=== PATIENT | female | born 1965 | race Caucasian/White ===

== ENCOUNTER 2023-03-17 09:05 | Inpatient (IN) ==
[2023-03-17] MEDS ORDERED: IOPAMIDOL 100 ML BOTTLE IV ONE (09:06)
[2023-03-17 09:30] LABS: POC INR 1.1 (0.8-1.2); POC Pro Time 12.7 (11.9-14.5)
[2023-03-17 09:37] LABS: POC Calcium, Ionized 1.24 (1.16-1.32); POC Creatinine 1.3 (0.6-1.2); POC Potassium 4.3 (3.3-5.1)
[2023-03-17] MEDS ORDERED: ASPIRIN 300 MG RECTAL SUPPOSITORY PR ONE ×2 (10:11→13:15)
[2023-03-17 10:41] LABS: ALT/SGPT 38 U/L (<40); AST/SGOT 14 U/L (<32); Albumin 4.3 gm/dL (3.2-5.2); Alkaline Phosphatase 198 U/L (39-117); Bilirubin,Direct < 0.2 mg/dL (0-0.3); Bilirubin,Total 0.5 mg/dL (0.1-1.0); Globulin 3.4 gm/dL (2.2-3.7)
[2023-03-17 10:47] LABS: Basophils # (Auto) 0.02 K/mcL (0.00-0.30); Basophils % (Auto) 0.3 % (0.0-2.0); Eosinophils # (Auto) 0.13 K/mcL (0.00-0.70); Hematocrit 42.6 % (34.1-44.9); Hemoglobin 13.9 g/dL (11.2-15.7); Lymphocytes # (Auto) 0.56 K/mcL (1.50-4.80); Lymphocytes % (Auto) 8.6 % (15.5-49.0); Mean Cell Volume 88.6 fL (80.0-100.0); Mean Corpuscular HGB Conc 32.6 g/dL (31.0-36.0); Mean Platelet Volume 9.8 fL (8.8-12.5); Monocytes # (Auto) 0.47 K/mcL (0.10-0.90); Monocytes % (Auto) 7.2 % (1.0-12.0); Platelet Count 292 K/mcL (140-440); RBC 4.81 M/mcL (3.59-5.38); Red Cell Distribution Width 14.3 % (11.5-14.5); WBC 6.5 K/mcL (4.5-11.0)
[2023-03-17] MEDS ORDERED: ONDANSETRON 4 MG/2 ML VIAL IV ONE (12:50)
[2023-03-17] MEDS ORDERED: HYDROmorphone 0.5 MG/0.5 ML SYRINGE IV ONE ×2 (12:50→14:14)
[2023-03-17] MEDS ORDERED: SENNOSIDES 1 TABLET PO PRN (13:43)
[2023-03-17] MEDS ORDERED: LACTULOSE 20 GM/30 ML ORAL.SOL PO PRN (13:43)
[2023-03-17] MEDS: CLOPIDOGREL 75 MG TABLET PO SCH (15:54)
[2023-03-17] MEDS: 0.9 % SODIUM CHLORIDE 10 ML SYRINGE IV SCH ×2 (15:55→20:30)
[2023-03-17 19:16] LABS: Appearance,Urine CLEAR (Clear); Bilirubin,Urine Negative (Negative); Color,Urine STRAW; Culture Indicated,Urine No; Glucose,Urine (UA) Negative (Negative); Ketones,Urine Negative (Negative); Leukocyte Esterase,Urine Negative /uL (Negative); Nitrate,Urine Negative (Negative); Protein,Urine Negative (Negative); Specific Gravity,Urine 1.034 (1.000-1.035); Urine Blood Negative (Negative); Urobilinogen,Urine Negative
[2023-03-17] MEDS: DOCUSATE SODIUM 100 MG CAPSULE PO SCH (20:27)
[2023-03-17] MEDS: HEPARIN 5,000 UNIT/ML VIAL SQ SCH (20:30)
[2023-03-18] MEDS: 0.9 % SODIUM CHLORIDE 10 ML SYRINGE IV SCH ×2 (06:02→15:17)
[2023-03-18] MEDS ORDERED: ALBUTEROL SULFATE 60 PUFF INHALER INH PRN (07:22)
[2023-03-18] MEDS ORDERED: ATORVASTATIN 40 MG TABLET PO SCH (09:00)
[2023-03-18] MEDS ORDERED: NON FORMULARY MEDICATION 1 DOSE MISCELL (Atorvastatin 80 mg tablet) PO SCH (09:00)
[2023-03-18] MEDS: DOCUSATE SODIUM 100 MG CAPSULE PO SCH ×2 (10:03→20:35)
[2023-03-18] MEDS: HEPARIN 5,000 UNIT/ML VIAL SQ SCH (10:08)
[2023-03-18] MEDS: ASPIRIN 81 MG TAB.CHEW CHEWED SCH (10:09)
[2023-03-18] MEDS: ATORVASTATIN 40 MG TABLET PO SCH (12:59)
[2023-03-18] MEDS: ACETAMINOPHEN 325 MG TABLET PO PRN ×2 (13:00→20:30)
[2023-03-18] MEDS: ONDANSETRON 4 MG ODT TABLET SL PRN ×2 (13:00→20:32)
[2023-03-18] MEDS: GABAPENTIN 300 MG CAPSULE PO SCH ×3 (13:00→20:33)
[2023-03-18] MEDS: CLOPIDOGREL 75 MG TABLET PO SCH (13:53)
[2023-03-18 16:05] LABS: Basophils # (Auto) 0.01 K/mcL (0.00-0.30); Basophils % (Auto) 0.2 % (0.0-2.0); Eosinophils # (Auto) 0.18 K/mcL (0.00-0.70); Eosinophils % (Auto) 3.3 % (0.0-7.0); Hematocrit 40.6 % (34.1-44.9); Lymphocytes % (Auto) 9.1 % (15.5-49.0); Mean Cell Volume 90.8 fL (80.0-100.0); Mean Platelet Volume 9.5 fL (8.8-12.5); Monocytes # (Auto) 0.41 K/mcL (0.10-0.90); Monocytes % (Auto) 7.5 % (1.0-12.0); Neutrophils % (Auto) 78.6 % (38.0-78.0); Platelet Count 281 K/mcL (140-440); RBC 4.47 M/mcL (3.59-5.38); Red Cell Distribution Width 14.1 % (11.5-14.5); WBC 5.5 K/mcL (4.5-11.0)
[2023-03-18 16:11] LABS: Blood Urea Nitrogen 18 mg/dL (6-20); Carbon Dioxide 23 mmol/L (22-30); Chloride 102 mmol/L (96-108); Glomerular Filtration Rate 56; Glucose 71 mg/dL (70-105); Thyroid Stimulating Hormone 0.61 uIU/mL (0.27-5.01)
[2023-03-18 16:42] LABS: Estimated Average Glucose(eAG) 91 mg/dL; Hemoglobin A1C 4.8 % Hgb (4.0-6.0)
[2023-03-18] MEDS ORDERED: AMITRIPTYLINE 25 MG TABLET PO SCH (21:00)
[2023-03-19] MEDS: 0.9 % SODIUM CHLORIDE 10 ML SYRINGE IV SCH ×2 (01:05→09:10)
[2023-03-19] MEDS: HEPARIN 5,000 UNIT/ML VIAL SQ SCH ×2 (01:08→09:08)
[2023-03-19] MEDS ORDERED: amLODIPine 10 MG TABLET PO SCH (09:00)
[2023-03-19] MEDS: DOCUSATE SODIUM 100 MG CAPSULE PO SCH (09:09)
[2023-03-19] MEDS: ATORVASTATIN 40 MG TABLET PO SCH (09:09)
[2023-03-19] MEDS: ASPIRIN 81 MG TAB.CHEW CHEWED SCH (09:09)
[2023-03-19] MEDS: GABAPENTIN 300 MG CAPSULE PO SCH (09:10)
== END 2023-03-19 14:10 | disposition home health service (06) | DRG 57 ==
LOC: ED 09:05 → ICU 14:45 → MEDSUR 03-18 15:01
PROVIDERS: ADMIT Student in an Organized Health Care Education/Training Program; ATTEND Student in an Organized Health Care Education/Training Program

== ENCOUNTER 2023-12-19 07:23 | Inpatient (IN) ==
[2023-12-19 09:05] LABS: Hematocrit 32.9 % (34.1-44.9); Hemoglobin 10.5 g/dL (11.2-15.7); Mean Corpuscular HGB Conc 31.9 g/dL (31.0-36.0); Mean Platelet Volume 9.6 fL (8.8-12.5); Platelet Count 255 K/mcL (140-440); RBC 3.74 M/mcL (3.59-5.38); Red Cell Distribution Width 14.4 % (11.5-14.5); WBC 3.6 K/mcL (4.5-11.0)
[2023-12-19] MEDS: ONDANSETRON 4 MG/2 ML VIAL IV ONE (09:26)
[2023-12-19] MEDS: HYDROmorphone 0.5 MG/0.5 ML SYRINGE IV ONE (09:26)
[2023-12-19 09:28] LABS: proBNP 61.5 pg/mL (<125.0)
[2023-12-19 09:29] LABS: Appearance,Urine Clear (Clear); Bilirubin,Urine Negative (Negative); Color,Urine Yellow; Culture Indicated,Urine No; Glucose,Urine (UA) Negative (Negative); Ketones,Urine Negative (Negative); Leukocyte Esterase,Urine Trace /uL (Negative); Nitrate,Urine Negative (Negative); Protein,Urine Negative (Negative); Urine Blood Negative ery/mcL (Negative); Urine RBC 0 /hpf (0-3); Urine Squamous Epithelial Cell 7 /hpf (0-4); Urine WBC 0 /hpf (0-4); Urobilinogen,Urine Normal
[2023-12-19 09:31] LABS: ALT/SGPT 8 U/L (<40); AST/SGOT 13 U/L (<32); Albumin 3.8 gm/dL (3.2-5.2); Albumin/Globulin Ratio 1.7 (1.0-2.3); Alkaline Phosphatase 123 U/L (39-117); Bilirubin,Total 0.3 mg/dL (0.1-1.0); Blood Urea Nitrogen 9 mg/dL (6-20); Calcium 9.4 mg/dL (8.6-10.4); Carbon Dioxide 23 mmol/L (22-30); Chloride 107 mmol/L (96-108); Globulin 2.3 gm/dL (2.2-3.7); Glomerular Filtration Rate 62; Glucose 102 mg/dL (70-105)
[2023-12-19] MEDS: HYDROmorphone 0.5 MG/0.5 ML SYRINGE IM ONE (11:51)
[2023-12-19] MEDS: guaiFENesin 600 MG TAB.SR.12H PO ONE (12:28)
[2023-12-19] MEDS: methylPREDNISolone SOD SUCC 125 MG/2 ML VIAL IV ONE (12:28)
[2023-12-19 13:13] LABS: Basophils % (Manual) 1 % (0-2); Eosinophils % (Manual) 4 % (0-7); Lymphocytes % 6 % (15-49); Monocytes % (Manual) 6 % (1-12); Platelet Estimate NORMAL (Normal); RBC Morphology NORMAL (Normal); Reactive Lymphocytes 3 % (0-2); Segmented Neutrophils % 80 % (38-78)
[2023-12-19] MEDS ORDERED: ACETAMINOPHEN 325 MG TABLET PO PRN (17:21)
[2023-12-19] MEDS ORDERED: MAGNESIUM HYDROXIDE 30 ML ORAL.SUSP PO PRN (17:21)
[2023-12-19] MEDS ORDERED: NALOXONE HCL 0.4 MG/ML VIAL IV PRN (17:21)
[2023-12-19] MEDS: diphenhydrAMINE 50 MG/ML VIAL IV PRN (17:47)
[2023-12-19] MEDS: ONDANSETRON 4 MG/2 ML VIAL IV PRN (17:48)
[2023-12-19] MEDS: HYDROmorphone 1 MG/ML SYRINGE IV ONE (17:48)
[2023-12-19] MEDS: 0.9 % SODIUM CHLORIDE 10 ML SYRINGE IV SCH (17:49)
[2023-12-19] MEDS: IPRATROPIUM/ALBUTEROL 3 ML AMPUL.NEB NEB SCH (18:45)
[2023-12-19] MEDS: methylPREDNISolone SOD SUCC 125 MG/2 ML VIAL IV SCH (21:40)
[2023-12-19] MEDS: DOCUSATE SODIUM 100 MG CAPSULE PO SCH (21:40)
[2023-12-19] MEDS: SENNOSIDES 1 TABLET PO SCH (21:40)
[2023-12-19] MEDS ORDERED: ALBUTEROL SULFATE 60 PUFF INHALER INH PRN (21:41)
[2023-12-19] MEDS: HYDROmorphone 2 MG TABLET PO PRN (21:41)
[2023-12-19] MEDS: amLODIPine 5 MG TABLET ONE (22:24)
[2023-12-19] MEDS: GABAPENTIN 300 MG CAPSULE ONE (22:25)
[2023-12-20] MEDS: guaiFENesin/CODEINE 10 ML UDC PO PRN (00:42)
[2023-12-20 06:20] LABS: Basophils # (Auto) 0 K/mcL (0.00-0.30); Basophils % (Auto) 0 % (0.0-2.0); Eosinophils # (Auto) 0 K/mcL (0.00-0.70); Eosinophils % (Auto) 0 % (0.0-7.0); Hematocrit 34.4 % (34.1-44.9); Lymphocytes # (Auto) 0.38 K/mcL (1.50-4.80); Lymphocytes % (Auto) 9.3 % (15.5-49.0); Mean Cell Volume 87.3 fL (80.0-100.0); Mean Platelet Volume 9.6 fL (8.8-12.5); Monocytes # (Auto) 0.05 K/mcL (0.10-0.90); Monocytes % (Auto) 1.2 % (1.0-12.0); Neutrophils % (Auto) 88.5 % (38.0-78.0); Platelet Count 275 K/mcL (140-440); RBC 3.94 M/mcL (3.59-5.38); Red Cell Distribution Width 14.1 % (11.5-14.5); WBC 4.1 K/mcL (4.5-11.0)
[2023-12-20] MEDS ORDERED: HYDROCODONE HOMATROPINE PO PRN (06:45)
[2023-12-20 07:03] LABS: Phosphorous 3.1 mg/dL (2.5-4.5)
[2023-12-20 07:19] LABS: ALT/SGPT 7 U/L (<40); AST/SGOT 15 U/L (<32); Albumin 3.9 gm/dL (3.2-5.2); Albumin/Globulin Ratio 1.5 (1.0-2.3); Alkaline Phosphatase 125 U/L (39-117); Bilirubin,Total 0.4 mg/dL (0.1-1.0); Blood Urea Nitrogen 12 mg/dL (6-20); Calcium 9.8 mg/dL (8.6-10.4); Carbon Dioxide 22 mmol/L (22-30); Chloride 105 mmol/L (96-108); Globulin 2.6 gm/dL (2.2-3.7); Glomerular Filtration Rate 62; Glucose 141 mg/dL (70-105)
[2023-12-20] MEDS: GABAPENTIN 300 MG CAPSULE PO SCH (08:29)
[2023-12-20] MEDS: ENOXAPARIN 40 MG/0.4 ML SYRINGE SQ SCH (08:29)
[2023-12-20] MEDS: ACETAMINOPHEN 500 MG TABLET PO PRN (08:29)
[2023-12-20] MEDS: AMITRIPTYLINE 25 MG TABLET PO SCH (21:13)
[2023-12-20] MEDS: amLODIPine 10 MG TABLET PO SCH (21:14)
[2023-12-21 06:25] LABS: Basophils # (Auto) 0.01 K/mcL (0.00-0.30); Basophils % (Auto) 0.1 % (0.0-2.0); Eosinophils # (Auto) 0 K/mcL (0.00-0.70); Eosinophils % (Auto) 0 % (0.0-7.0); Hematocrit 34.6 % (34.1-44.9); Hemoglobin 10.7 g/dL (11.2-15.7); Lymphocytes # (Auto) 0.44 K/mcL (1.50-4.80); Lymphocytes % (Auto) 4.9 % (15.5-49.0); Mean Cell Volume 90.1 fL (80.0-100.0); Mean Corpuscular HGB Conc 30.9 g/dL (31.0-36.0); Mean Platelet Volume 10.2 fL (8.8-12.5); Monocytes # (Auto) 0.13 K/mcL (0.10-0.90); Monocytes % (Auto) 1.4 % (1.0-12.0); Neutrophils % (Auto) 93.2 % (38.0-78.0); Platelet Count 289 K/mcL (140-440); RBC 3.84 M/mcL (3.59-5.38); Red Cell Distribution Width 14.5 % (11.5-14.5); WBC 9.1 K/mcL (4.5-11.0)
[2023-12-21 06:55] LABS: ALT/SGPT < 5 U/L (<40); AST/SGOT 18 U/L (<32); Albumin/Globulin Ratio 1.5 (1.0-2.3); Alkaline Phosphatase 116 U/L (39-117); Bilirubin,Total < 0.2 mg/dL (0.1-1.0); Blood Urea Nitrogen 20 mg/dL (6-20); Calcium 9.9 mg/dL (8.6-10.4); Carbon Dioxide 21 mmol/L (22-30); Chloride 101 mmol/L (96-108); Globulin 2.6 gm/dL (2.2-3.7); Glomerular Filtration Rate 50; Glucose 153 mg/dL (70-105)
[2023-12-21] MEDS: methylPREDNISolone SOD SUCC 40 MG/ML VIAL IV SCH (08:51)
[2023-12-21] MEDS: LACTATED RINGERS 1,000 ML IV SCH (08:53)
[2023-12-21] MEDS: HYDROmorphone 1 MG/ML SYRINGE IV ONE (21:01)
[2023-12-21] MEDS: HYDROmorphone 1 MG/ML SYRINGE ONE (21:07)
[2023-12-22 06:58] LABS: Basophils # (Auto) 0.02 K/mcL (0.00-0.30); Basophils % (Auto) 0.2 % (0.0-2.0); Eosinophils # (Auto) 0.01 K/mcL (0.00-0.70); Eosinophils % (Auto) 0.1 % (0.0-7.0); Hematocrit 36.2 % (34.1-44.9); Hemoglobin 11.3 g/dL (11.2-15.7); Lymphocytes # (Auto) 1.05 K/mcL (1.50-4.80); Lymphocytes % (Auto) 11.8 % (15.5-49.0); Mean Cell Volume 89.2 fL (80.0-100.0); Mean Corpuscular HGB Conc 31.2 g/dL (31.0-36.0); Mean Platelet Volume 9.5 fL (8.8-12.5); Monocytes # (Auto) 0.65 K/mcL (0.10-0.90); Monocytes % (Auto) 7.3 % (1.0-12.0); Platelet Count 316 K/mcL (140-440); RBC 4.06 M/mcL (3.59-5.38); Red Cell Distribution Width 14.3 % (11.5-14.5); WBC 8.9 K/mcL (4.5-11.0)
[2023-12-22 07:40] LABS: ALT/SGPT < 5 U/L (<40); AST/SGOT 16 U/L (<32); Albumin/Globulin Ratio 1.5 (1.0-2.3); Alkaline Phosphatase 112 U/L (39-117); Bilirubin,Total < 0.2 mg/dL (0.1-1.0); Blood Urea Nitrogen 18 mg/dL (6-20); Calcium 9.9 mg/dL (8.6-10.4); Carbon Dioxide 22 mmol/L (22-30); Chloride 104 mmol/L (96-108); Globulin 2.6 gm/dL (2.2-3.7); Glomerular Filtration Rate 56; Glucose 90 mg/dL (70-105)
[2023-12-22] MEDS: methylPREDNISolone SOD SUCC 40 MG/ML VIAL IV ONE (17:42)
[2023-12-22] MEDS: HYDROmorphone 1 MG/ML SYRINGE IV ONE (20:46)
[2023-12-23] MEDS ORDERED: IPRATROPIUM/ALBUTEROL 3 ML AMPUL.NEB NEB PRN (08:18)
== END 2023-12-23 11:10 | disposition home or self-care (01) | DRG 197 ==
LOC: ED 07:23 → MEDSUR 17:11
PROVIDERS: ADMIT Student in an Organized Health Care Education/Training Program; ATTEND Internal Medicine

== ENCOUNTER 2024-06-03 01:25 | Inpatient (IN) ==
[2024-06-03] MEDS ORDERED: IOPAMIDOL 100 ML BOTTLE IV ONE (01:26)
[2024-06-03] MEDS: HYDROmorphone 0.5 MG/0.5 ML SYRINGE IV PRN ×2 (02:49→11:59)
[2024-06-03] MEDS: ONDANSETRON 4 MG/2 ML VIAL IV ONE ×3 (02:49→08:59)
[2024-06-03] MEDS: 0.9 % SODIUM CHLORIDE 1,000 ML IV ONE (02:49)
[2024-06-03 03:03] LABS: Basophils # (Auto) 0.02 K/mcL (0.00-0.30); Basophils % (Auto) 0.2 % (0.0-2.0); Eosinophils # (Auto) 0.12 K/mcL (0.00-0.70); Hematocrit 42.3 % (34.1-44.9); Hemoglobin 13.9 g/dL (11.2-15.7); Lymphocytes # (Auto) 0.42 K/mcL (1.50-4.80); Lymphocytes % (Auto) 3.6 % (15.5-49.0); Mean Cell Volume 88.5 fL (80.0-100.0); Mean Corpuscular HGB Conc 32.9 g/dL (31.0-36.0); Monocytes # (Auto) 0.81 K/mcL (0.10-0.90); Monocytes % (Auto) 6.9 % (1.0-12.0); Platelet Count 255 K/mcL (140-440); RBC 4.78 M/mcL (3.59-5.38); WBC 11.7 K/mcL (4.5-11.0)
[2024-06-03 03:24] LABS: ALT/SGPT 17 U/L (<40); AST/SGOT 26 U/L (<32); Albumin 4.6 gm/dL (3.2-5.2); Albumin/Globulin Ratio 1.7 (1.0-2.3); Alkaline Phosphatase 141 U/L (39-117); Bilirubin,Total 0.5 mg/dL (0.1-1.0); Blood Urea Nitrogen 24 mg/dL (6-20); Calcium 10.4 mg/dL (8.6-10.4); Carbon Dioxide 22 mmol/L (22-30); Chloride 106 mmol/L (96-108); Globulin 2.7 gm/dL (2.2-3.7); Glomerular Filtration Rate 38; Glucose 117 mg/dL (70-105); Potassium 3.5 mmol/L (3.3-5.1); Sodium 144 mmol/L (133-145)
[2024-06-03] MEDS: diphenhydrAMINE 50 MG/ML VIAL IV ONE (04:44)
[2024-06-03] MEDS: methylPREDNISolone SOD SUCC 125 MG/2 ML VIAL IV ONE (04:44)
[2024-06-03] MEDS: HYDROmorphone 1 MG/ML SYRINGE IV ONE (09:00)
[2024-06-03] MEDS ORDERED: ACETAMINOPHEN 500 MG TABLET PO PRN (09:51)
[2024-06-03] MEDS ORDERED: 0.9 % SODIUM CHLORIDE 1,000 ML IV SCH (09:51)
[2024-06-03] MEDS ORDERED: SENNOSIDES 1 TABLET PO PRN (09:51)
[2024-06-03] MEDS: HEPARIN 5,000 UNIT/ML VIAL SQ SCH (10:07)
[2024-06-03] MEDS: SODIUM CHLORIDE 154 MEQ in WATER FOR INJECTION,STERILE 961.5 ML IV SCH (10:22)
[2024-06-03] MEDS: HYDROcodone/APAP 5/325MG TABLET PO PRN (10:41)
[2024-06-03] MEDS: 0.9 % SODIUM CHLORIDE 10 ML SYRINGE IV SCH (12:00)
[2024-06-03] MEDS: ONDANSETRON 4 MG/2 ML VIAL IV PRN (16:38)
[2024-06-03] MEDS ORDERED: IPRATROPIUM/ALBUTEROL 3 ML AMPUL.NEB NEB PRN (20:26)
[2024-06-03] MEDS: AMITRIPTYLINE 25 MG TABLET PO SCH (21:09)
[2024-06-03] MEDS: GABAPENTIN 300 MG CAPSULE PO SCH (21:10)
[2024-06-03] MEDS: amLODIPine 10 MG TABLET PO SCH (21:11)
[2024-06-03] MEDS: diphenhydrAMINE 25 MG CAPSULE PO PRN (21:11)
[2024-06-03] MEDS: BUDESONIDE 0.5 MG/2 ML AMPUL.NEB NEB SCH (21:12)
[2024-06-04 07:05] LABS: Basophils # (Auto) 0 K/mcL (0.00-0.30); Basophils % (Auto) 0 % (0.0-2.0); Eosinophils # (Auto) 0 K/mcL (0.00-0.70); Eosinophils % (Auto) 0 % (0.0-7.0); Hematocrit 37.9 % (34.1-44.9); Hemoglobin 12.5 g/dL (11.2-15.7); Lymphocytes # (Auto) 0.39 K/mcL (1.50-4.80); Lymphocytes % (Auto) 2.6 % (15.5-49.0); Mean Cell Volume 87.9 fL (80.0-100.0); Monocytes # (Auto) 1.24 K/mcL (0.10-0.90); Monocytes % (Auto) 8.1 % (1.0-12.0); Neutrophils % (Auto) 88.7 % (38.0-78.0); Platelet Count 196 K/mcL (140-440); RBC 4.31 M/mcL (3.59-5.38); Red Cell Distribution Width 13.7 % (11.5-14.5); WBC 15.3 K/mcL (4.5-11.0)
[2024-06-04 08:22] LABS: Blood Urea Nitrogen 11 mg/dL (6-20); Calcium 8.4 mg/dL (8.6-10.4); Carbon Dioxide 22 mmol/L (22-30); Chloride 103 mmol/L (96-108); Glomerular Filtration Rate 96; Glucose 119 mg/dL (70-105); Potassium 3.1 mmol/L (3.3-5.1); Sodium 137 mmol/L (133-145)
[2024-06-04] MEDS: metroNIDAZOLE 500 MG/100 ML BAG IV SCH (10:54)
[2024-06-04] MEDS: POTASSIUM CHLORIDE 10 MEQ/100 ML BAG IV SCH (10:57)
[2024-06-04] MEDS: cefTRIAXone 1 GM VIAL IV SCH (10:58)
[2024-06-04] MEDS: methylPREDNISolone SOD SUCC 40 MG/ML VIAL IV SCH (10:58)
[2024-06-04] MEDS: MAGNESIUM SULFATE 1 GM/100 ML BAG IV ONE (10:59)
[2024-06-04] MEDS: LIDOCAINE 4% TOP PATCH TOPICAL SCH (11:11)
[2024-06-04] MEDS: POTASSIUM CHLORIDE 40 MEQ in DEXTROSE 5% IN WATER 500 ML IV ONE (11:12)
[2024-06-04] MEDS: 0.9 % SODIUM CHLORIDE 1,000 ML IV SCH (11:13)
[2024-06-04] MEDS: diphenhydrAMINE 50 MG/ML VIAL IV PRN (13:24)
[2024-06-04] MEDS: SODIUM CHLORIDE 154 MEQ in WATER FOR INJECTION,STERILE 961.5 ML IV SCH (13:24)
[2024-06-04] MEDS ORDERED: SODIUM CHLORIDE IRRIG SOLUTION 250 ML BOTTLE IRR ONE (16:33)
[2024-06-04] MEDS ORDERED: IOPAMIDOL 100 ML BOTTLE IV ONE ×2 (16:33→16:38)
[2024-06-04] MEDS: cefTRIAXone 1 GM VIAL IV ONE (18:05)
[2024-06-04] MEDS: 0.9 % SODIUM CHLORIDE 10 ML SYRINGE IV SCH (20:06)
[2024-06-04 20:33] LABS: ALT/SGPT 12 U/L (<40); AST/SGOT 14 U/L (<32); Albumin 3.7 gm/dL (3.2-5.2); Albumin/Globulin Ratio 1.6 (1.0-2.3); Alkaline Phosphatase 113 U/L (39-117); Bilirubin,Direct < 0.2 mg/dL (0-0.3); Bilirubin,Total 0.3 mg/dL (0.1-1.0); Blood Urea Nitrogen 10 mg/dL (6-20); Calcium 8.3 mg/dL (8.6-10.4); Carbon Dioxide 23 mmol/L (22-30); Chloride 100 mmol/L (96-108); Globulin 2.3 gm/dL (2.2-3.7); Glomerular Filtration Rate 81; Glucose 158 mg/dL (70-105); Lactate Dehydrogenase 138 U/L (135-225); Phosphorous 1.5 mg/dL (2.5-4.5); Potassium 3.4 mmol/L (3.3-5.1); Sodium 135 mmol/L (133-145); Triglycerides 107 mg/dL (<150); Uric Acid 4.1 mg/dL (2.5-8.0)
[2024-06-04] MEDS: POTASSIUM PHOSPHATE 66 MEQ/15 ML VIAL IV ONE (22:34)
[2024-06-04] MEDS: POTASSIUM PHOSPHATE 40 MEQ in DEXTROSE 5% IN WATER 500 ML IV ONE (22:35)
[2024-06-05 06:11] LABS: Basophils # (Auto) 0.01 K/mcL (0.00-0.30); Basophils % (Auto) 0.1 % (0.0-2.0); Eosinophils # (Auto) 0 K/mcL (0.00-0.70); Eosinophils % (Auto) 0 % (0.0-7.0); Hematocrit 36.2 % (34.1-44.9); Hemoglobin 12.1 g/dL (11.2-15.7); Lymphocytes # (Auto) 0.63 K/mcL (1.50-4.80); Lymphocytes % (Auto) 4.2 % (15.5-49.0); Mean Cell Volume 87.4 fL (80.0-100.0); Mean Corpuscular HGB Conc 33.4 g/dL (31.0-36.0); Mean Platelet Volume 10.4 fL (8.8-12.5); Monocytes # (Auto) 1.23 K/mcL (0.10-0.90); Monocytes % (Auto) 8.2 % (1.0-12.0); Neutrophils % (Auto) 86.7 % (38.0-78.0); Platelet Count 199 K/mcL (140-440); RBC 4.14 M/mcL (3.59-5.38); Red Cell Distribution Width 13.6 % (11.5-14.5)
[2024-06-05] MEDS: cefTRIAXone 2 GM in DEXTROSE 5% IN WATER 50 ML IV SCH (08:09)
[2024-06-05 08:23] LABS: Blood Urea Nitrogen 8 mg/dL (6-20); Carbon Dioxide 25 mmol/L (22-30); Chloride 101 mmol/L (96-108); Glomerular Filtration Rate 96; Glucose 101 mg/dL (70-105); Potassium 3.7 mmol/L (3.3-5.1); Sodium 136 mmol/L (133-145)
[2024-06-05] MEDS ORDERED: cefTRIAXone 1 GM VIAL IV SCH (09:00)
[2024-06-05] MEDS ORDERED: methylPREDNISolone SOD SUCC 125 MG/2 ML VIAL IV SCH (09:00)
[2024-06-05] MEDS: CALCIUM GLUCONATE 9.3 MEQ in DEXTROSE 5% IN WATER 50 ML IV ONE (09:55)
[2024-06-05] MEDS: POTASSIUM PHOSPHATE 20 MEQ in DEXTROSE 5% IN WATER 250 ML IV ONE (09:56)
[2024-06-05] MEDS: 0.9 % SODIUM CHLORIDE 10 ML SYRINGE IV PRN (13:14)
[2024-06-06 06:32] LABS: Basophils # (Auto) 0.01 K/mcL (0.00-0.30); Basophils % (Auto) 0.1 % (0.0-2.0); Eosinophils # (Auto) 0.01 K/mcL (0.00-0.70); Eosinophils % (Auto) 0.1 % (0.0-7.0); Hematocrit 35.1 % (34.1-44.9); Hemoglobin 11.5 g/dL (11.2-15.7); Lymphocytes # (Auto) 0.59 K/mcL (1.50-4.80); Lymphocytes % (Auto) 5.7 % (15.5-49.0); Mean Corpuscular HGB Conc 32.8 g/dL (31.0-36.0); Mean Platelet Volume 10.2 fL (8.8-12.5); Monocytes # (Auto) 0.62 K/mcL (0.10-0.90); Neutrophils % (Auto) 87.6 % (38.0-78.0); Platelet Count 205 K/mcL (140-440); RBC 3.99 M/mcL (3.59-5.38); Red Cell Distribution Width 13.7 % (11.5-14.5); WBC 10.3 K/mcL (4.5-11.0)
[2024-06-06 07:59] LABS: Blood Urea Nitrogen 12 mg/dL (6-20); Carbon Dioxide 28 mmol/L (22-30); Chloride 103 mmol/L (96-108); Glomerular Filtration Rate 96; Glucose 91 mg/dL (70-105); Potassium 3.8 mmol/L (3.3-5.1); Sodium 139 mmol/L (133-145)
[2024-06-06] MEDS: CALCIUM W/VIT D3 500 MG TABLET PO SCH (08:32)
[2024-06-06 09:12] LABS: EBV Virus Capsid Ag IgG Ab >600.0 U/mL (0.0-17.9); EBV Virus Capsid Ag IgM Ab 45.3 U/mL (0.0-35.9)
[2024-06-06] MEDS ORDERED: ACETAMINOPHEN 500 MG TABLET PO PRN (09:23)
[2024-06-06] MEDS: CALCIUM GLUCONATE 9.3 MEQ in DEXTROSE 5% IN WATER 50 ML IV ONE (09:34)
[2024-06-06] MEDS: ACETAMINOPHEN 1,000 MG/100 ML BAG IV ONE (09:39)
[2024-06-06] MEDS: HYDROmorphone 0.5 MG/0.5 ML SYRINGE IV PRN (10:34)
[2024-06-06] MEDS: ACYCLOVIR SODIUM 500 MG VIAL IV SCH (11:52)
[2024-06-06] MEDS: ACYCLOVIR SODIUM IV SCH (12:06)
[2024-06-06] MEDS: SODIUM CHLORIDE 0.9% IV SCH (12:06)
[2024-06-06] MEDS: HYDROcodone/APAP 5/325MG TABLET PO PRN (12:07)
[2024-06-06] MEDS ORDERED: ACYCLOVIR SODIUM 500 MG VIAL IV SCH (13:00)
[2024-06-06] MEDS: POTASSIUM PHOSPHATE 40 MEQ in DEXTROSE 5% IN WATER 500 ML IV ONE (13:48)
[2024-06-06 14:09] LABS: Adenovirus Not Detected (Not Detected); Bordetella Pertussis Not Detected (Not Detected); Chlamydophila Pneumoniae Not Detected (Not Detected); Coronavirus 229E Not Detected (Not Detected); Coronavirus HKU1 Not Detected (Not Detected); Coronavirus NL63 Not Detected (Not Detected); Coronavirus OC43 Not Detected (Not Detected); Human Metapneumovirus Not Detected (Not Detected); Influenza A/H1 Not Detected (Not Detected); Influenza A/H1-2009 Not Detected (Not Detected); Influenza A/H3 Not Detected (Not Detected); Influenza B Not Detected (Not Detected); Mycoplasma Pneumoniae Not Detected (Not Detected); Parainfluenza 1 Not Detected (Not Detected); Parainfluenza 2 Not Detected (Not Detected); Parainfluenza 3 Not Detected (Not Detected); Parainfluenza 4 Not Detected (Not Detected); Respiratory Syncytial Virus Not Detected (Not Detected)
[2024-06-06] MEDS: CALCIUM GLUCONATE 4.65 MEQ/10 ML VIAL IV ONE (14:19)
[2024-06-06] MEDS: methylPREDNISolone SOD SUCC 40 MG/ML VIAL IV ONE (21:20)
[2024-06-07 07:41] LABS: Blood Urea Nitrogen 13 mg/dL (6-20); C-Reactive Protein 7.11 mg/dL (0.03-0.80); Carbon Dioxide 27 mmol/L (22-30); Chloride 102 mmol/L (96-108); Glomerular Filtration Rate 71; Glucose 135 mg/dL (70-105); Sodium 139 mmol/L (133-145)
[2024-06-07 08:06] LABS: Basophils # (Auto) 0 K/mcL (0.00-0.30); Basophils % (Auto) 0 % (0.0-2.0); Eosinophils # (Auto) 0 K/mcL (0.00-0.70); Eosinophils % (Auto) 0 % (0.0-7.0); Hematocrit 37.6 % (34.1-44.9); Hemoglobin 12.5 g/dL (11.2-15.7); Lymphocytes # (Auto) 0.45 K/mcL (1.50-4.80); Lymphocytes % (Auto) 6.4 % (15.5-49.0); Mean Cell Volume 87.6 fL (80.0-100.0); Mean Corpuscular HGB Conc 33.2 g/dL (31.0-36.0); Mean Platelet Volume 10.1 fL (8.8-12.5); Monocytes # (Auto) 0.16 K/mcL (0.10-0.90); Monocytes % (Auto) 2.3 % (1.0-12.0); Neutrophils % (Auto) 90.3 % (38.0-78.0); Platelet Count 230 K/mcL (140-440); RBC 4.29 M/mcL (3.59-5.38); Red Cell Distribution Width 13.4 % (11.5-14.5); WBC 7.1 K/mcL (4.5-11.0)
[2024-06-07] MEDS: HYDROmorphone 1 MG/ML SYRINGE IV PRN (14:33)
[2024-06-08 07:41] LABS: C-Reactive Protein 3.02 mg/dL (0.03-0.80)
[2024-06-08 07:45] LABS: Basophils # (Auto) 0.01 K/mcL (0.00-0.30); Basophils % (Auto) 0.1 % (0.0-2.0); Eosinophils # (Auto) 0.04 K/mcL (0.00-0.70); Eosinophils % (Auto) 0.6 % (0.0-7.0); Hematocrit 34.7 % (34.1-44.9); Hemoglobin 11.5 g/dL (11.2-15.7); Lymphocytes % (Auto) 13.1 % (15.5-49.0); Mean Cell Volume 87.6 fL (80.0-100.0); Mean Corpuscular HGB Conc 33.1 g/dL (31.0-36.0); Mean Platelet Volume 9.5 fL (8.8-12.5); Monocytes # (Auto) 0.76 K/mcL (0.10-0.90); Neutrophils % (Auto) 70.3 % (38.0-78.0); Platelet Count 200 K/mcL (140-440); RBC 3.96 M/mcL (3.59-5.38); Red Cell Distribution Width 13.1 % (11.5-14.5); WBC 6.9 K/mcL (4.5-11.0)
[2024-06-08] MEDS: predniSONE 20 MG TABLET PO SCH (07:50)
[2024-06-08] MEDS: cefTRIAXone 1 GM VIAL IV SCH (08:57)
[2024-06-08] MEDS ORDERED: cefTRIAXone 1 GM in DEXTROSE 5% IN WATER 50 ML IV SCH (09:00)
[2024-06-08 09:16] LABS: Blood Urea Nitrogen 11 mg/dL (6-20); Carbon Dioxide 29 mmol/L (22-30); Chloride 102 mmol/L (96-108); Glomerular Filtration Rate 81; Glucose 80 mg/dL (70-105); Potassium 2.9 mmol/L (3.3-5.1); Sodium 139 mmol/L (133-145)
[2024-06-08] MEDS: POTASSIUM PHOSPHATE 40 MEQ in DEXTROSE 5% IN WATER 500 ML IV ONE (11:16)
[2024-06-08] MEDS: NEUTRA PHOS 1 PACKET PO SCH (11:30)
[2024-06-08] MEDS: POTASSIUM CHLORIDE 20 MEQ TABLET PO ONE ×2 (11:52→14:11)
[2024-06-08 12:02] LABS: Parathyroid Hormone Intact 70.3 pg/mL (15.0-65.0)
[2024-06-08] MEDS: HYDROmorphone 1 MG/ML SYRINGE IV ONE (12:44)
[2024-06-08] MEDS: HYDROcodone/APAP 5/325MG TABLET PO PRN (14:12)
[2024-06-08] MEDS: metroNIDAZOLE 500 MG TABLET PO SCH (14:15)
[2024-06-08] MEDS: valACYclovir 500 MG TABLET PO SCH (14:15)
[2024-06-08] MEDS ORDERED: ACYCLOVIR 200 MG/5 ML PO SCH (15:00)
[2024-06-08] MEDS: HYDROmorphone 1 MG/ML SYRINGE IV PRN (15:58)
[2024-06-08 18:05] LABS: Blood Urea Nitrogen 14 mg/dL (6-20); Carbon Dioxide 30 mmol/L (22-30); Chloride 96 mmol/L (96-108); Glomerular Filtration Rate 62; Glucose 153 mg/dL (70-105); Potassium 4.5 mmol/L (3.3-5.1); Sodium 137 mmol/L (133-145)
[2024-06-08] MEDS: CALCIUM CARBONATE 500 MG TAB.CHEW CHEWED SCH (18:53)
[2024-06-08] MEDS: VITAMIN D3 25 MCG TABLET PO SCH (18:53)
[2024-06-08] MEDS: oxyCODONE IR 5 MG TABLET PO PRN (21:12)
[2024-06-08] MEDS: CEFDINIR 300 MG CAPSULE PO SCH (21:13)
[2024-06-08] MEDS: CALCIUM GLUCONATE 4.65 MEQ/10 ML VIAL ONE (21:14)
[2024-06-08] MEDS: CALCIUM GLUCONATE 4.65 MEQ in DEXTROSE 5% IN WATER 50 ML IV ONE (21:16)
[2024-06-09 06:45] LABS: Basophils # (Auto) 0 K/mcL (0.00-0.30); Basophils % (Auto) 0 % (0.0-2.0); Eosinophils # (Auto) 0.03 K/mcL (0.00-0.70); Eosinophils % (Auto) 0.4 % (0.0-7.0); Hemoglobin 12.5 g/dL (11.2-15.7); Lymphocytes # (Auto) 0.98 K/mcL (1.50-4.80); Lymphocytes % (Auto) 11.9 % (15.5-49.0); Mean Cell Volume 87.2 fL (80.0-100.0); Mean Corpuscular HGB Conc 32.9 g/dL (31.0-36.0); Mean Platelet Volume 9.9 fL (8.8-12.5); Monocytes # (Auto) 0.94 K/mcL (0.10-0.90); Monocytes % (Auto) 11.4 % (1.0-12.0); Neutrophils % (Auto) 68.2 % (38.0-78.0); Platelet Count 242 K/mcL (140-440); RBC 4.36 M/mcL (3.59-5.38); Red Cell Distribution Width 13.2 % (11.5-14.5); WBC 8.3 K/mcL (4.5-11.0)
[2024-06-09 07:29] LABS: C-Reactive Protein 2.08 mg/dL (0.03-0.80)
[2024-06-09 07:48] LABS: ALT/SGPT 12 U/L (<40); AST/SGOT 14 U/L (<32); Albumin 3.5 gm/dL (3.2-5.2); Albumin/Globulin Ratio 1.6 (1.0-2.3); Alkaline Phosphatase 104 U/L (39-117); Bilirubin,Total < 0.2 mg/dL (0.1-1.0); Blood Urea Nitrogen 15 mg/dL (6-20); Carbon Dioxide 28 mmol/L (22-30); Chloride 98 mmol/L (96-108); Globulin 2.2 gm/dL (2.2-3.7); Glomerular Filtration Rate 62; Glucose 91 mg/dL (70-105); Sodium 138 mmol/L (133-145)
[2024-06-10 17:02] LABS: EBV Early Antigen-SO < 9.00 U/mL
== END 2024-06-09 11:52 | disposition home or self-care (01) | DRG 155 ==
LOC: ED 01:25 → MEDSUR 09:25
PROVIDERS: ADMIT Internal Medicine; ATTEND Internal Medicine